=== PATIENT | female | born 1995 ===

== ENCOUNTER 2017-09-20 11:31 | Emergency (ER) | payer OTHER ==
[2017-09-20] MEDS ORDERED: NA CHLORIDE 0.9% 1,000 ML ONE (12:19)
[2017-09-20 12:25] LABS: Absolute Monocytes 0.5 K/uL (0.1-1.3); Absolute Neutrophil 7.1 K/uL (1.8-8.0); Basophils % 0.6 % (0-1.3); Eosinophils % 0.7 % (0-4.4); Hematocrit 34.8 % (36.0-45.0); Lymphocytes % 20.9 % (15.3-44.8); MCH 29.6 pg (27.0-35.0); MCV 87.9 fL (80-100); MPV 10.1 fL (7.6-11.3); Monocytes % 4.7 % (3.3-12.3); RBC Red Blood Cell Count 3.96 M/uL (3.86-4.86)
[2017-09-20 13:07] LABS: Urine Blood NEGATIVE (NEG); Urine Glucose NEGATIVE (NEG); Urine Protein NEGATIVE (NEG)
[2017-09-20 13:36] LABS: Bicarbonate 20 mEq/L (21-31); Glucose Level 67 mg/dL (65-120); Lipase 17 U/L (22-51); Potassium 3.1 mEq/L (3.6-5.0); Sodium Level 136 mEq/L (135-145)
[2017-09-20 13:39] LABS: ALT/SGPT 20 IU/L (10-60); AST/SGOT 18 IU/L (10-42); Albumin 3.2 g/dL (3.2-5.5); Alkaline Phosphatase 35 IU/L (42-121); BUN Blood Urea Nitrogen 5 mg/dL (6-20); Bilirubin Total 0.4 mg/dL (0.3-1.2); Protein, Total 5.9 g/dL (6.0-8.3)
[2017-09-20] MEDS ORDERED: POTASSIUM 25 MEQ EFFERV TAB ONE (14:11)
--- NOTE | 2017-09-20 15:48 | EDPHYS ---
Physician Documentation [facility] Name: Katelin Fitzgerald Age: 22 yrs Sex: Female : 1995 Arrival Date: 09/20/2017 Time: 11:36 Bed 17 Private MD: None, None ED Physician Joel Roger HPI: 09/20 16:00 This 22 yrs old Unknown Female presents to ER via Ambulatory with complaints of pm1 Diarrhea, 14 Wks . 16:00 The patient presents to the emergency department with diarrhea. The patient presents to pm1 the emergency department with diarrhea, 12 times since the onset of symptoms. Onset: The symptoms/episode began/occurred 3 day(s) ago. Possible causes: unknown. The symptoms are aggravated by nothing. The symptoms are alleviated by nothing. Associated signs and symptoms: Pertinent negatives: abdominal pain, dysuria, fever, nausea, vomiting. Severity of symptoms: in the emergency department the symptoms have improved. The patient has not recently seen a physician. Patient without any vaginal bleeding, abdominal/pelvic pain, vaginal discharge, dysuria. 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 - Social history:: Smoking status: Patient/guardian denies using tobacco, Patient/guardian denies using alcohol. ROS: 16:00 Constitutional: Negative for fever, chills, and weight loss, Eyes: Negative for injury, pm1 pain, redness, and discharge, ENT: Negative for injury, pain, and discharge, Neck: Negative for injury, pain, and swelling, Cardiovascular: Negative for chest pain, palpitations, and edema, Respiratory: Negative for shortness of breath, cough, wheezing, and pleuritic chest pain. 16:00 Back: Negative for injury and pain, : Negative for injury, bleeding, discharge, and swelling, MS/Extremity: Negative for injury and deformity, Skin: Negative for injury, rash, and discoloration, Neuro: Negative for headache, weakness, numbness, tingling, and seizure. 16:00 Abdomen/GI: Positive for diarrhea, Negative for abdominal pain, nausea and vomiting, constipation. Exam: 16:00 Constitutional: This is a well developed, well nourished patient who is awake, alert, pm1 and in no acute distress. Head/Face: Normocephalic, atraumatic. Neck: Trachea midline, no thyromegaly or masses palpated, and no cervical lymphadenopathy. Supple, full range of motion without nuchal rigidity, or vertebral point tenderness. No Meningismus. Chest/axilla: Normal chest wall appearance and motion. Nontender with no deformity. No lesions are appreciated. Cardiovascular: Regular rate and rhythm with a normal S1 and S2. No gallops, murmurs, or rubs. Normal PMI, no JVD. No pulse deficits. Respiratory: Lungs have equal breath sounds bilaterally, clear to auscultation and percussion. No rales, rhonchi or wheezes noted. No increased work of breathing, no retractions or nasal flaring. 16:00 Back: No spinal tenderness. No costovertebral tenderness. Full range of motion. Skin: Warm, dry with normal turgor. Normal color with no rashes, no lesions, and no evidence of cellulitis. MS/ Extremity: Pulses equal, no cyanosis. Neurovascular intact. Full, normal range of motion. 16:00 Abdomen/GI: Inspection: gravid appearance, is noted, Bowel sounds: normal, Palpation: abdomen is soft and non-tender. 16:00 Neuro: Orientation: is normal, Motor: moves all fours. Vital Signs: 11:40 BP 111 / 74; Pulse 86; Resp 17; Temp 98.0(TE); Pulse Ox 99% on R/A; Weight 54.43 kg tw2 (R); Height 5 ft. 0 in. (152.40 cm); Pain 0/10; 12:45 BP 100 / 64; Pulse 82; Resp 14; Pulse Ox 99% on R/A; mh5 13:42 BP 104 / 76; Pulse 86; Resp 14; Pulse Ox 99% on R/A; mh5 14:45 BP 115 / 69; Pulse 84; Resp 18; Pulse Ox 100% on R/A; hj 15:54 BP 110 / 75; Pulse 85; Resp 18; Pulse Ox 100% on R/A; hj 11:40 Body Mass Index 23.44 (54.43 kg, 152.40 cm) tw2 MDM: 12:04 Patient medically screened. pm1 15:47 Data reviewed: vital signs. Data interpreted: Pulse oximetry: on room air is 99 %. pm1 Interpretation: normal. Counseling: I had a detailed discussion with the patient and/or guardian regarding: the historical points, exam findings, and any diagnostic results supporting the discharge/admit diagnosis, lab results, the need for outpatient follow up, to return to the emergency department if symptoms worsen or persist or if there are any questions or concerns that arise at home. 09/20 12:09 Order name: CBC with Diff; Complete Time: 14:08 pm1 09/20 12:09 Order name: Lipase; Complete Time: 14:08 pm1 09/20 12:09 Order name: CMP; Complete Time: 14:08 pm1 09/20 12:36 Order name: Urine Dipstick--Ancillary (enter results); Complete Time: 14:08 ag 09/20 12:36 Order name: Urine --Ancillary (enter results); Complete Time: 14:08 ag 09/20 12:09 Order name: Urine Test (obtain specimen); Complete Time: 12:36 pm1 09/20 12:09 Order name: IV Saline Lock; Complete Time: 12:37 pm1 09/20 12:09 Order name: Labs collected and sent; Complete Time: 12:37 pm1 09/20 12:09 Order name: Urine Dipstick-Ancillary (obtain specimen); Complete Time: 12:37 pm1 09/20 12:09 Order name: FHT's; Complete Time: 13:36 pm1 09/20 12:40 Order name: Labs - recollect needed; Complete Time: 12:48 ag Administered Medications: 12:09 Drug: NS 0.9% 1000 ml Route: IV; Rate: 1000 ml; Site: right hand; hj 13:36 Follow up: IV Status: Completed infusion hj 14:08 Drug: Potassium Effervescent Tablet 50 mEq Route: PO; hj 14:14 Follow up: Response: No adverse reaction hj Disposition: 17:18 Co-signature as Attending Physician, Joel Roger MD. rn Disposition: 09/20/17 15:48 Discharged to Home. Impression: Diarrhea, unspecified. - Condition is Stable. - Discharge Instructions: Food Choices to Help Relieve Diarrhea, Adult, Diarrhea, Viral Gastroenteritis. - Medication Reconciliation Form, Thank You Letter form. - Follow up: Emergency Department; When: As needed; Reason: Worsening of condition. Follow up: Private Physician; When: 2 - 3 days; Reason: Recheck today's complaints, Continuance of care, Re-evaluation by your physician. - Problem is new. - Symptoms have improved. Signatures: Dispatcher [employer] EDJoel Salazar MD MD rn Gallardo, Ana ag Joaquin, Henry RN Irving Brown, SENDY WET MIXER pm1
--- NOTE | 2017-09-20 15:48 | ER ---
Nurse's Notes [facility] Name: Katelin Fitzgerald Age: 22 yrs Sex: Female : 1995 Arrival Date: 09/20/2017 Time: 11:36 Bed 17 Private MD: None, None Diagnosis: Diarrhea, unspecified Presentation: 09/20 11:39 Presenting complaint: Patient states: i have a lot of diarrhea and i cant take over the tw2 counter medicine, i dont have a doctor so they told me to come here, 3 days of diarrhea, denies n/v. Transition of care: patient was not received from another setting of care. Onset of symptoms was September 20, 2017. Initial Sepsis Screen: Does the patient meet any 2 criteria? No. Patient's initial sepsis screen is negative. Does the patient have a suspected source of infection? No. Patient's initial sepsis screen is negative. Care prior to arrival: None. 11:39 Method Of Arrival: Ambulatory tw2 11:39 Acuity: JALEN 4 tw2 Triage Assessment: 11:39 General: Appears in no apparent distress. uncomfortable, Behavior is calm, cooperative, hj appropriate for age. Pain: Denies pain. GI: Reports diarrhea. 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 - Social history:: Smoking status: Patient/guardian denies using tobacco, Patient/guardian denies using alcohol. Screenin:39 Abuse screen: Denies threats or abuse. Denies injuries from another. Nutritional hj screening: No deficits noted. Tuberculosis screening: No symptoms or risk factors identified. Fall Risk None identified. Assessment: 11:39 General: Appears in no apparent distress. uncomfortable, Behavior is calm, cooperative, hj appropriate for age. Pain: Denies pain. Neuro: Level of Consciousness is awake, alert, obeys commands, Oriented to person, place, time, situation, Appropriate for age. Cardiovascular: Capillary refill < 3 seconds Patient's skin is warm and dry. Respiratory: Airway is patent Respiratory effort is even, unlabored, Respiratory pattern is regular, symmetrical. GI: No signs and/or symptoms were reported involving the gastrointestinal system. : EENT: No signs and/or symptoms were reported regarding the EENT system. Derm: No signs and/or symptoms reported regarding the dermatologic system. Musculoskeletal: No signs and/or symptoms reported regarding the musculoskeletal system. 12:39 Reassessment: Patient and/or family updated on plan of care and expected duration. Pain hj level reassessed. Patient is alert, oriented x 3, equal unlabored respirations, skin warm/dry/pink. 13:39 Reassessment: Patient and/or family updated on plan of care and expected duration. Pain hj level reassessed. Patient is alert, oriented x 3, equal unlabored respirations, skin warm/dry/pink. Patient states feeling better. 14:39 Reassessment: Patient and/or family updated on plan of care and expected duration. Pain hj level reassessed. Patient is alert, oriented x 3, equal unlabored respirations, skin warm/dry/pink. Patient states feeling better. Patient states symptoms have improved. 15:39 Reassessment: Patient and/or family updated on plan of care and expected duration. Pain hj level reassessed. Patient is alert, oriented x 3, equal unlabored respirations, skin warm/dry/pink. Patient states feeling better. Vital Signs: 11:40 BP 111 / 74; Pulse 86; Resp 17; Temp 98.0(TE); Pulse Ox 99% on R/A; Weight 54.43 kg tw2 (R); Height 5 ft. 0 in. (152.40 cm); Pain 0/10; 12:45 BP 100 / 64; Pulse 82; Resp 14; Pulse Ox 99% on R/A; mh5 13:42 BP 104 / 76; Pulse 86; Resp 14; Pulse Ox 99% on R/A; mh5 14:45 BP 115 / 69; Pulse 84; Resp 18; Pulse Ox 100% on R/A; hj 15:54 BP 110 / 75; Pulse 85; Resp 18; Pulse Ox 100% on R/A; hj 11:40 Body Mass Index 23.44 (54.43 kg, 152.40 cm) tw2 Vitals: 13:02 Heart Tones: 144 Heart Tone. 5 ED Course: 11:36 Patient arrived in ED. mr 11:38 None, None is Private Physician. mr 11:39 Patient has correct armband on for positive identification. Placed in gown. Bed in low hj position. Call light in reach. Side rails up X 1. 11:39 Initial lab(s) drawn, by me, sent to lab. Inserted saline lock: 22 gauge in right hj forearm, using aseptic technique. Blood collected. 11:40 Triage completed. tw2 11:40 Arm band placed on. tw2 11:59 Zion Anderson, YESSI is Primary Nurse. mg2 12:01 Irving Ramos NP is PHCP. pm1 12:01 Joel Roger MD is Attending Physician. pm1 16:00 No provider procedures requiring assistance completed. IV discontinued, intact, hj bleeding controlled, No redness/swelling at site. Pressure dressing applied. Administered Medications: 12:09 Drug: NS 0.9% 1000 ml Route: IV; Rate: 1000 ml; Site: right hand; hj 13:36 Follow up: IV Status: Completed infusion hj 14:08 Drug: Potassium Effervescent Tablet 50 mEq Route: PO; hj 14:14 Follow up: Response: No adverse reaction hj Outcome: 15:48 Discharge ordered by MD. pm1 16:00 Discharged to home ambulatory. hj 16:00 Condition: stable 16:00 Discharge instructions given to patient, Instructed on discharge instructions, follow up and referral plans. Demonstrated understanding of instructions, follow-up care. 16:01 Patient left the ED. Signatures: Esha Cabezas mr DennisBlayne RN RN Irving Ramos NP CABLE REELER pm1 Phylicia Rudd RN RN [facility] Esha Cooper [facility] Zion Anderson RN RN [facility] [place]
== END 2017-09-20 16:01 | disposition home or self-care (01) ==
LOC: ER 11:31
DX: R19.7 Diarrhea, unspecified (principal)
CPT/HCPCS: 36415; 80053; 81003; 81025; 83690; 85025; 96360; 99284; J7030